=== PATIENT | female | born 1950 | race Caucasian/White ===

== ENCOUNTER 2022-11-06 11:07 | Inpatient (IN) | payer MEDICARE, OTHER ==
[~2022-11-06] VITALS: Ht 160 cm; Wt 66.2 kg
--- NOTE | 2022-11-06 11:13 | NUR ---
No female bed available at this time. ER dry charge process attendant Jesse notified.
--- NOTE | 2022-11-06 11:16 | NUR ---
DR Alves medically cleared pt for admit to MHU.
--- NOTE | 2022-11-06 11:26 | NUR ---
Patient is medically cleared by Dr Alves. MHU nurse Nani will call ER for SBAR as soon as possible per MHU rn relief chargeBROOKE Bartholomew. Patient is resting comfortably on gurney, calm and cooperative at this time.
--- NOTE | 2022-11-06 12:10 | NUR ---
Patient was reminded not to pick and blow her nose. Intermittent visit by our it security project manager was implemented.
--- NOTE | 2022-11-06 12:40 | NUR ---
Patient is eating lunch tray with good appetite, still waiting for an accepting MHU staff@this time.
--- NOTE | 2022-11-06 13:56 | NUR ---
Nurse Nani accepted nursing SBAR. Patient will leave ER as soon as possible.
[2022-11-06 14:10] VITALS: BP 136/75
--- NOTE | 2022-11-06 14:10 | NUR ---
Gps/Astrobiologist- Received report from BROOKE Andrews (ER)
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
[2022-11-06] MEDS ORDERED: MAG HYDROX/AL HYDROX/SIMETH 30 ML LIQUID UDC PO PRN (14:30)
[2022-11-06] MEDS ORDERED: ACETAMINOPHEN 325 MG TABLET PO PRN (14:30)
[2022-11-06] MEDS ORDERED: LORAZEPAM 0.5 MG TABLET PO PRN (14:30)
[2022-11-06] MEDS ORDERED: BLOOD SUGAR DIAGNOSTIC 1 EACH STRIP VI ONE (15:00)
[2022-11-06 16:00] VITALS: BP 124/76
[2022-11-06] MEDS: DIVALPROEX 250 MG TABLET.DR PO SCH ×2 (17:50→21:55)
--- NOTE | 2022-11-06 18:00 | NUR ---
Gps/Cream Cheese Maker- Patient found laughing by her herself in the bathroom, encouraged to finish her dinner. patient refused EKG, will attempt at a later time per R.T.
[2022-11-06 20:08] VITALS: BP 113/68
[2022-11-06] MEDS ORDERED: OLANZAPINE 5 MG TABLET PO SCH (21:00)
--- NOTE | 2022-11-06 22:29 | NUR ---
GPS: Pt.was asked regarding her flu and pna vaccination status earlier. Pt.is hesitant to get these vaccines at the moment. Risks and benefits were explained to her by staff and verbalized understanding.
--- NOTE | 2022-11-07 05:54 | NUR ---
GPS: Pt.slept 6 hrs. last night. Pt.was anxious,disorganized,confused at times but re-directable. Re-assured prn. Denies AH/VH. Safe environment provided. Needs attended. Will continue to monitor.
[2022-11-07 07:30] VITALS: BP 111/70
[2022-11-07 07:45] LABS: HEMATOCRIT 43.9 % (31.2-41.9); MEAN CORPUSCULAR HEMOGLOBIN 31.9 uug (24.7-32.8); MEAN CORPUSCULAR VOLUME 93.4 fL (75.5-95.3); PLATELET COUNT (AUTO) 219 K/uL (179-408)
[2022-11-07 08:05] LABS: CREATININE 0.7 mg/dL (0.6-1.3); POTASSIUM 3.9 mmol/L (3.5-5.1)
[2022-11-07] MEDS: DIVALPROEX 250 MG TABLET.DR PO SCH ×3 (08:50→17:27)
--- NOTE | 2022-11-07 14:00 | NUR ---
Gps/Reverse Engineer- Patient interacting with her roommate. Attended her group therapy, affect pleasant , speech clear, incoherent speech noted at times, laughing incoherently, redirectable, compliant with routine meds.
--- NOTE | 2022-11-07 14:51 | NUR ---
GAYLE Initial Discharge Note: Pt states she lives in a [facility] located at [address] [place] [address]. Per face sheet, pt's address is [address] [place] [address] ([phone]). GAYLE contacted pt's sister, Maribel ([phone]) and left a voicemail regarding pt's discharge plan. GAYLE will continue to work with pt, family and MD to ensure a safe and proper discharge plan.
--- NOTE | 2022-11-07 14:54 | NUR ---
Firearms Report: Manager Loan completed and submitted a DOJ firearms report for 5150 a danger to self certifications. A copy of report has been placed in patient chart.
[2022-11-07 16:00] VITALS: BP 128/67
[2022-11-07 20:03] VITALS: BP 133/76
[2022-11-07] MEDS: OLANZAPINE 5 MG TABLET PO SCH (21:09)
--- NOTE | 2022-11-08 06:25 | NUR ---
GPS: Remains asleep at this time during rounds. Breathing easy and unlabored. Re-assured and re-directed. Remains disorganized,circumstantial, and has tangential thoughts. Needs attended. Med.compliant. Will continue to monitor.
[2022-11-08 07:53] VITALS: BP 91/44
[2022-11-08] MEDS: DIVALPROEX 250 MG TABLET.DR PO SCH ×3 (08:24→16:22)
--- NOTE | 2022-11-08 13:42 | NUR ---
GPS: Nursing Notes: Destructive Behavior To Self: Patient is awake and responding to her name, impaired judgment, hyperverbal, poor impulse control, redirected during shift, gets easily irritable when redirected, unable to formulate a viable plan for self care, denies SI, episodes of mumbling to unseen others, internally preoccupied, stated "that she is many missions...", unable to formulate a viable plan for self care, denies SI/HI, continue to monitor for safety, continue with treatment plan.
[2022-11-08 16:05] VITALS: BP 144/71
[2022-11-08 20:00] VITALS: BP 118/62
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
[2022-11-08] MEDS: OLANZAPINE 5 MG TABLET PO SCH (20:37)
[2022-11-09 08:09] VITALS: BP 96/68
[2022-11-09] MEDS: DIVALPROEX 250 MG TABLET.DR PO SCH ×3 (08:32→16:09)
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
[2022-11-09 16:08] VITALS: BP 125/76
[2022-11-09 19:58] VITALS: BP 109/75
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
[2022-11-09] MEDS: OLANZAPINE 5 MG TABLET PO SCH (20:31)
[2022-11-10 07:43] VITALS: BP 112/58
[2022-11-10] MEDS: DIVALPROEX 250 MG TABLET.DR PO SCH ×3 (08:08→16:32)
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
--- NOTE | 2022-11-10 15:03 | NUR ---
14 days PC hearing done ,held for Gravely disabled.
--- NOTE | 2022-11-10 15:19 | NUR ---
GPS: Nursing Notes: Destructive Behavior To Self: Patient is awake and responding to her name, impaired judgment, poor insight, disoriented, gets easily anxious when redirected, disorganized thought process, believes that she is leaving today, wandering around the unit, resistant with nursing care, unable to formulate a viable plan for self care, continue to monitor for safety, continue with treatment plan.
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
[2022-11-10 16:35] VITALS: BP 111/58
[2022-11-10 19:43] VITALS: BP 112/56
[2022-11-10] MEDS: OLANZAPINE 5 MG TABLET PO SCH (20:19)
[2022-11-10] MEDS: TEMAZEPAM 7.5 MG CAPSULE PO PRN (22:16)
[2022-11-11 07:48] LABS: HEMATOCRIT 43.6 % (31.2-41.9); MEAN CORPUSCULAR HEMOGLOBIN 31.9 uug (24.7-32.8); MEAN CORPUSCULAR VOLUME 95.2 fL (75.5-95.3); PLATELET COUNT (AUTO) 207 K/uL (179-408)
[2022-11-11 08:01] VITALS: BP 95/53
[2022-11-11 08:05] LABS: BILIRUBIN,TOTAL 0.3 mg/dL (0.2-1.0); CREATININE 0.7 mg/dL (0.6-1.3); POTASSIUM 4.5 mmol/L (3.5-5.1)
[2022-11-11 08:11] LABS: NEUTROPHILS % (MANUAL) 0 % (42-75)
[2022-11-11] MEDS: DIVALPROEX 250 MG TABLET.DR PO SCH ×3 (08:31→17:07)
[2022-11-11 15:56] VITALS: BP 96/54
[2022-11-11 18:00] LABS: *BILIRUBIN,URIN NEGATIVE (NEGATIVE); *BLOOD, URINE 1+ (NEGATIVE); *CLARITY,URINE SLIGHTLY CLOUDY (CLEAR); *COLOR,URINE YELLOW (YELLOW); *KETONES,URINE TRACE (NEGATIVE); *UROBILINOGEN,URINE 0.2 E.U./dl (NORMAL); LEUKOCYTE ESTERASE ,URINE 1+ (NEGATIVE); NITRITE, URINE NEGATIVE (NEGATIVE); PH,URINE 7.5 (5.0-8.0); UGLUCOSE NEGATIVE (NEGATIVE)
--- NOTE | 2022-11-11 18:39 | NUR ---
GPS: Nursing Notes: Destructive Behavior To Self: Patient is awake and responding to her name, impaired judgment, resistant with nursing care, forgetful at times, episodes of talking incoherently, disorganized thought process, gets easily irritable when redirected, stated "I am not disabled anybody....Yes, I want my card....", needs prompting to participate in therapeutic groups, denies SI, unable to formulate a viable plan for self care, continue to monitor for safety, continue with treatment plan.
[2022-11-11 19:53] VITALS: BP 103/60
[2022-11-11] MEDS: OLANZAPINE 5 MG TABLET PO SCH (20:27)
--- NOTE | 2022-11-12 05:28 | NUR ---
Received patient at the start of the shift. Hyperverbal, paranoid and delusional. Difficult to redirect and hesitant to take her medications. Safety Stratiges are in place. Continuing to monitor for compliance and to encourage reality based thinking and meaningful conversation. Patient is anxious about her discharge plan. She denies having SI.
[2022-11-12 07:37] VITALS: BP 97/55
[2022-11-12] MEDS: DIVALPROEX 250 MG TABLET.DR PO SCH (08:48)
[2022-11-12] MEDS: OLANZAPINE 5 MG TABLET PO SCH ×2 (12:44→20:25)
[2022-11-12 15:03] VITALS: BP 113/59
[2022-11-12 20:33] VITALS: BP 95/58
--- NOTE | 2022-11-12 21:03 | NUR ---
GPS: Pt.is anxious slightly but re-directable. Insight and judgment remains impaired. Took bedtime meds.with little persuasion from staff. Safe environment provided. Will continue to monitor.
[2022-11-13 07:30] VITALS: BP 97/54
[2022-11-13] MEDS: OLANZAPINE 5 MG TABLET PO SCH ×2 (08:53→20:20)
--- NOTE | 2022-11-13 10:40 | NUR ---
Gps/Lisa Steinberg UNION STEWARD was in to see patient, i informed of UA results , order received Patient was well informed. Adequate fluid intake encouraged. Compliance noted.
[2022-11-13] MEDS: CEphaleXIN 500 MG CAPSULE PO SCH ×3 (12:08→22:07)
[2022-11-13 16:00] VITALS: BP 133/61
--- NOTE | 2022-11-13 16:08 | NUR ---
GAYLE Family Contact: GAYLE spoke with pt's sister, Shante ([phone]) [facility]. Shante is aware pt will follow with a psychiatrist and frontload driver. GAYLE will continue to inform Shante of pt's discharge details. Pt does not have a DPOA or conservator.
[2022-11-13] MEDS: risperiDONE 1 MG TABLET PO SCH (16:31)
[2022-11-13 20:15] VITALS: BP 96/48
[2022-11-14] MEDS: CEphaleXIN 500 MG CAPSULE PO SCH ×3 (06:22→21:26)
[2022-11-14 07:30] VITALS: BP 97/57
[2022-11-14] MEDS: risperiDONE 1 MG TABLET PO SCH ×2 (08:36→16:06)
--- NOTE | 2022-11-14 11:16 | NUR ---
Nursing- Attended part of her group activity had been compliant with her routine medications . Paranoia noted, tends to write down medications she had been given, forgets
--- NOTE | 2022-11-14 11:21 | NUR ---
SW Family Contact: SW spoke with pt's sister, Shante ([phone]) and left a voicemail for a call back regarding pt's referral to previously discussed facility called [facility] for discharge next week.
[2022-11-14 16:00] VITALS: BP 117/67
[2022-11-14] MEDS: risperiDONE 2 MG TABLET PO SCH (20:12)
[2022-11-14] MEDS: BENZTROPINE MESYLATE 0.5 MG TABLET PO SCH (20:16)
[2022-11-14 20:27] VITALS: BP 117/78
--- NOTE | 2022-11-15 00:27 | NUR ---
At 1730 report received from ongoing nurse, patient is AAOX2 with confusion. Patient was seen by the nursing station standing and looking for a few minutes; then went to her room. She is compliant with her meds. No aggressive behavior was observed, she was easy to redirect. Patient remained calm in her room.Will continue to monitor patient for Safety.
[2022-11-15] MEDS ORDERED: CEphaleXIN 500 MG CAPSULE ONE (06:52)
[2022-11-15] MEDS: CEphaleXIN 500 MG CAPSULE PO SCH (06:56)
[2022-11-15 08:00] VITALS: BP 102/54
[2022-11-15] MEDS: risperiDONE 1 MG TABLET PO SCH ×2 (08:41→16:13)
[2022-11-15] MEDS: BENZTROPINE MESYLATE 0.5 MG TABLET PO SCH ×2 (08:42→20:24)
--- NOTE | 2022-11-15 14:23 | NUR ---
Gps/Budget Engineer- Noter interacting to some of her peers during group activity. Preferred to stay in her room in bed during the afternoon. Complaint with routine meds.Patient verbalized she has concerned about her [employer] van in [facility]
[2022-11-15 16:04] VITALS: BP 94/57
[2022-11-15 19:55] VITALS: BP 90/52
[2022-11-15] MEDS: risperiDONE 2 MG TABLET PO SCH (20:23)
[2022-11-15] MEDS: TEMAZEPAM 7.5 MG CAPSULE PO PRN (22:52)
--- NOTE | 2022-11-16 04:19 | NUR ---
Received patient in her room. Hyperverbal with this proposal writer. Multiple worries and anxious about being able to return to her van to live her medications and so on.. She denies SI. The patient is disorganized and tangental. Poor insight to her mental issues. At on point, she sat down on the floor in the conklin, after that begun to pace up and down. Patient was requesting that we allow pictures of her Van to be sent to her cell phone. This patient has been needy and attention seeking. Safety Stratiges are in place. Continuing to encourage and educate the patient on effective and simple coping techniques.
[2022-11-16 08:05] LABS: HEMATOCRIT 46.5 % (31.2-41.9); MEAN CORPUSCULAR HEMOGLOBIN 31.6 uug (24.7-32.8); MEAN CORPUSCULAR VOLUME 94.8 fL (75.5-95.3); PLATELET COUNT (AUTO) 224 K/uL (179-408)
[2022-11-16 08:06] LABS: CREATININE 0.7 mg/dL (0.6-1.3); MAGNESIUM 2.3 mg/dL (1.8-2.4); PHOSPHOROUS 3.8 mg/dL (2.5-4.9); POTASSIUM 4.2 mmol/L (3.5-5.1)
[2022-11-16] MEDS: BENZTROPINE MESYLATE 0.5 MG TABLET PO SCH ×2 (08:10→20:24)
[2022-11-16] MEDS: risperiDONE 1 MG TABLET PO SCH ×2 (08:10→16:30)
[2022-11-16 08:23] VITALS: BP 102/56
[2022-11-16 12:30] LABS: BAND % (MANUAL) 3 % (0-10); EOSINOPHILS % (MANUAL) 1 % (0-8); LYMPHOCYTES % (MANUAL) 22 % (20-40); MONOCYTES % (MANUAL) 13 % (2-10); NEUTROPHILS % (MANUAL) 61 % (42-75)
[2022-11-16 15:15] VITALS: BP 105/57
--- NOTE | 2022-11-16 15:51 | NUR ---
Nursing- Had been interacting with her selected peers, in and out of her group activity.Showered self ind. after set up..Used phone couple of times was able to talked to se sister. Attended jaskaran obrien group therapy.Making her needs known ,
[2022-11-16 19:57] VITALS: BP 105/58
[2022-11-16] MEDS: risperiDONE 2 MG TABLET PO SCH (20:26)
[2022-11-16] MEDS: TEMAZEPAM 7.5 MG CAPSULE PO PRN (21:11)
[2022-11-17 07:37] VITALS: BP 110/51
[2022-11-17] MEDS: risperiDONE 1 MG TABLET PO SCH ×3 (08:26→16:31)
[2022-11-17] MEDS: BENZTROPINE MESYLATE 0.5 MG TABLET PO SCH ×2 (08:26→20:45)
--- NOTE | 2022-11-17 12:38 | NUR ---
SW Family Contact: SW spoke with pt's sister, Shante ([phone]) regarding [facility] Thursday for continuation of care. Shante is agreeable and thankful to this SW and the psychiatrist for helping pt with a continuation of care plan. Shante was especially grateful that pt will receive care at [facility] until she is cleared and ready to be on her own by the physician's at [facility].
--- NOTE | 2022-11-17 15:48 | NUR ---
GPS: Nursing Notes: Destructive Behavior To Self: Patient is awake and responding to her name, episodes of tangential speech, evasive when questioned by staff, gets easily anxious when redirected, needs prompting to shower, participating in therapeutic groups, unable to formulate a viable plan for self care, believes that she is going back to her Van, continue to monitor for safety, denies SI, continue with treatment plan.
[2022-11-17 16:00] VITALS: BP 126/68
[2022-11-17 20:09] VITALS: BP 100/50
[2022-11-17] MEDS: risperiDONE 2 MG TABLET PO SCH (20:45)
[2022-11-17] MEDS: TEMAZEPAM 7.5 MG CAPSULE PO PRN (23:21)
[2022-11-18 08:00] VITALS: BP 90/50
[2022-11-18] MEDS: risperiDONE 1 MG TABLET PO SCH ×3 (08:33→16:25)
[2022-11-18] MEDS: BENZTROPINE MESYLATE 0.5 MG TABLET PO SCH ×2 (08:33→20:50)
--- NOTE | 2022-11-18 13:13 | NUR ---
GPS: Nursing Notes: Destructive Behavior To Self: Patient is awake and responding to her name, impaired judgment, episodes of tangential speech, gets easily anxious when redirected, unable to formulate a viable plan for self care, believes that she is going back to her van, denies SI, participating in therapeutic groups, continue to monitor for safety, continue with treatment plan.
[2022-11-18 15:06] VITALS: BP 93/58
[2022-11-18 20:00] VITALS: BP 111/54
[2022-11-18] MEDS: risperiDONE 2 MG TABLET PO SCH (20:50)
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
[2022-11-18 21:31] VITALS: BP 111/54
[2022-11-19] MEDS: TEMAZEPAM 7.5 MG CAPSULE PO PRN (01:36)
[2022-11-19 07:53] VITALS: BP 95/48
[2022-11-19] MEDS: BENZTROPINE MESYLATE 0.5 MG TABLET PO SCH ×2 (08:41→20:34)
--- NOTE | 2022-11-19 10:13 | NUR ---
GAYLE Family Contact: SW contacted pt's sister, Shante ([phone]) and left a voicemail stating pt's discharge to [facility] located at [address] [place] [address] ([phone]) is cancelled per Dr. Cardona due to pt appearing anxious, agitated and yelling.
[2022-11-19] MEDS: risperiDONE 1 MG TABLET PO SCH ×4 (10:54→20:34)
--- NOTE | 2022-11-19 15:00 | NUR ---
Received pt in [place] awake anxious, confuse at times , guarded and easily irritable when redirected. Pt is A/o X2, ambulatory self care.Pt is compliant with medications and nursing care.Pt denies SI at this time. Continue to monitor for safety , Continue with treatment plan.
[2022-11-19 16:00] VITALS: BP 105/52
--- NOTE | 2022-11-19 16:03 | NUR ---
GAYLE Family Contact/Discharge Update: GAYLE spoke with pt's sister, Shante ([phone]) regarding pt's cancelled discharge as Shante had not yet received GAYLE's voicemail. Shante is aware and agreeable that this SW will inform Shante with pt's new discharge date once pt is stable for discharge. GAYLE will contact Sol ([phone]) from the facility to schedule transportation by [facility] when a discharge date is confirmed.
--- NOTE | 2022-11-19 20:30 | NUR ---
Received patient in her room in bed. she is awake A/O x 2 she is calm and pleasant upon approached. she is isolative and withdrawn but she is able to verbalized her feelings. she stated that she does not want to go to [place] but she could go to [place] as she knows that place and is easy for her to move around. She denied SI/HI/VH/AH. Patient is reassured for her safety. She continue compliant with her medication regiment diet and plan of care. her V/S are stable. She was given PO fluids and snacks. all her needs are met. she is reassured for her safety. safety and fall precautions are in place. will continue to monitor.
[2022-11-19 20:42] VITALS: BP 114/61
--- NOTE | 2022-11-20 06:36 | NUR ---
GPS: Pt.slept 7 hrs.last night. Less anxious now but remains withdrawn. Re-directed and re-assured prn. Safe environment provided. Will continue to monitor.
[2022-11-20 07:30] VITALS: BP 112/45
[2022-11-20] MEDS: BENZTROPINE MESYLATE 0.5 MG TABLET PO SCH ×2 (08:27→20:09)
[2022-11-20] MEDS: risperiDONE 1 MG TABLET PO SCH ×4 (08:27→20:09)
[2022-11-20 16:00] VITALS: BP 109/49
--- NOTE | 2022-11-20 16:29 | NUR ---
Received pt in [place] awake less anxious, confuse at times , guarded and easily irritable when redirected. Pt is A/o X2, ambulatory self care.Pt is compliant with medications and nursing care. Pt comes out of the room more and interacts with peers more.Pt denies SI at this time. Continue to monitor for safety , Continue with treatment plan.
[2022-11-20 20:44] VITALS: BP 118/55
[2022-11-21 07:30] VITALS: BP 94/61
[2022-11-21] MEDS: risperiDONE 1 MG TABLET PO SCH ×4 (08:55→20:06)
[2022-11-21] MEDS: BENZTROPINE MESYLATE 0.5 MG TABLET PO SCH ×2 (08:55→20:05)
[2022-11-21 16:00] VITALS: BP 116/61
--- NOTE | 2022-11-21 18:35 | NUR ---
Pt is awake most of the time, forgetful, but able to state her needs. pt is compliant with medications, pt is willing to follow treatment plan. Pt is redirectable at this time.
[2022-11-21 20:01] VITALS: BP 111/61
--- NOTE | 2022-11-21 20:40 | NUR ---
GPS: Remains anxious,worried and disorganized. Re-assured and re-directed. Med.compliant. Safe environment provided. Denies SI. Needs attended.
[2022-11-22 07:36] VITALS: BP 101/46
[2022-11-22] MEDS: risperiDONE 1 MG TABLET PO SCH ×4 (08:34→20:54)
[2022-11-22] MEDS: BENZTROPINE MESYLATE 0.5 MG TABLET PO SCH ×2 (08:34→20:53)
--- NOTE | 2022-11-22 12:24 | NUR ---
GPS: Nursing Notes: Destructive Behavior To Self: Patient is awake and responding to her name, episodes of tangential speech, redirected and reoriented during shift, anxious affect, impaired judgment, gets easily anxious when redirected, poor impulse control at times, unable to formulate a viable plan for self care, needs prompting to participate in therapeutic groups, denies SI, continue to monitor for safety, continue with treatment plan.
[2022-11-22 16:31] VITALS: BP 99/50
[2022-11-22 20:00] VITALS: BP 108/56
--- NOTE | 2022-11-23 04:25 | NUR ---
Patient up during the night asking for a shower. Reluctant to put clean cloths on afterwards. The patient remains delusional, telling this physician underwriter " I am about to start my job at [employer] ". Tangental speech , flight of ideas , but was wiling to make a verbal contract for safety and denied SI. The patient refused sleeping medication and was up most of the night. Safety Stratiges are in place.
[2022-11-23 07:52] VITALS: BP 94/46
[2022-11-23] MEDS: risperiDONE 1 MG TABLET PO SCH ×4 (08:29→20:39)
[2022-11-23] MEDS: BENZTROPINE MESYLATE 0.5 MG TABLET PO SCH ×2 (08:29→20:39)
--- NOTE | 2022-11-23 13:44 | NUR ---
GPS: Nursing Notes: Destructive Behavior To Self: Patient is awake and responding to her name, cooperative with nursing care, compliant with her mediations, episodes of tangential speech, following staff directions, believes that she is leaving tomorrow, unable to formulate a viable plan for self care, needs prompting to participate in therapeutic groups, continue to monitor for safety, continue with treatment plan.
[2022-11-23 16:33] VITALS: BP 124/56
[2022-11-23 19:54] VITALS: BP_SYST 100; BP_SYST 108; BP_DIAS 50
--- NOTE | 2022-11-24 02:45 | NUR ---
Patient stayed in her room most of the night , but has been having a hard time sleeping. A PRN medication was offered and the patient refused. The patient stated " I am nervous about going to [place] tomorrow because their library is too small. " The patient is delusional and speech is tangental . She has difficulty engaging in a meaningful conversation, has poor insight and no plan of self care upon discharge. Reassurance and information were provided about the discharge as requested, per oncology social worker documentation. Safety Stratiges are in place. Patient is sleeping at this time.
[2022-11-24 06:47] LABS: HEMATOCRIT 42.9 % (31.2-41.9); MEAN CORPUSCULAR HEMOGLOBIN 31.3 uug (24.7-32.8); MEAN CORPUSCULAR VOLUME 93.9 fL (75.5-95.3); PLATELET COUNT (AUTO) 239 K/uL (179-408)
[2022-11-24 07:12] LABS: THYROID STIMULATING HORMONE 5.159 mIU/mL (0.358-3.740)
[2022-11-24 07:29] LABS: BILIRUBIN,TOTAL 0.5 mg/dL (0.2-1.0); CREATININE 0.7 mg/dL (0.6-1.3); MAGNESIUM 2.1 mg/dL (1.8-2.4); PHOSPHOROUS 4.2 mg/dL (2.5-4.9); POTASSIUM 3.9 mmol/L (3.5-5.1); TOTAL PROTEIN, SERUM 6.5 g/dL (6.4-8.2)
[2022-11-24 07:43] VITALS: BP 99/58
[2022-11-24] MEDS: risperiDONE 1 MG TABLET PO SCH (08:25)
[2022-11-24] MEDS: BENZTROPINE MESYLATE 0.5 MG TABLET PO SCH (08:25)
--- NOTE | 2022-11-24 09:03 | NUR ---
GAYLE Family Contact: SW contacted pts sister, Shante ([phone]) and confirmed for pt's discharge today to [facility] located at [address] [place] [address] via FACILITY TRANSPORTATION by non-emergency medical transport at 11AM. Shante is aware and agreeable with the discharge plan.
--- NOTE | 2022-11-24 09:09 | NUR ---
GAYLE Discharge Screener: GAYLE completed a discharge screener with the pt.
--- NOTE | 2022-11-24 09:41 | NUR ---
GAYLE Discharge Note: Pt will be discharged to [facility]pc facility located at [address] [place] [phone]) [phone] via FACILITY TRANSPORTATION by non-emergency medical transport at 11AM. GAYLE spoke with Sol silvestre at the facility who states they are ready to accept the patient today. Pt is aware and agreeable with discharge plan. Pts sister, Shante ([phone]) is aware and agreeable with the discharge plan. Pt is alert and oriented x3, is unable to plan for self-care at this time. However, pt is willing to accept care at SNF. Pt denies any suicidal or homicidal ideation. Pt will follow-up at the facility with Psychiatrist, Dr. Meadows and Spray Rig Operator, Dr. Samuel. Pt presents with calm mood and congruent affect. PHARMACY: [facility] [address] [facility] .
--- NOTE | 2022-11-24 12:21 | NUR ---
GPS: Nursing Notes: Discharge Notes: Patient is awake and responding to her name, cooperative with nursing care, compliant with her medications, following staff directions, denies SI/HI, denies AH/VH, denies discomfort or pain, denies SOB. Patient is discharge to [facility]. SNF at [address] [place] [phone] . Report given to facility's admitting nurse - Michelle, RN supervisor finishing, belongings and valuables are given to patient. Patient's sister - Shante was inform of discharge by social studies department chair. Patient will follow up with Dr. Meadows (psychiatrist) and Dr. Samuel (ethologist) at the facility for aftercare. Facility's transportation picked her up.
== END 2022-11-24 11:30 | DRG 885 ==
LOC: ER 11:07 → GPS 13:52
PROVIDERS: ADMIT Psychiatry & Neurology Psychosomatic Medicine; ATTEND Nurse Practitioner Family
DX: F20.9 Schizophrenia, unspecified (principal); E86.0 Dehydration; Z20.822 Contact with and (suspected) exposure to COVID-19; F29 Unspecified psychosis not due to a substance or known physiological condition; F41.9 Anxiety disorder, unspecified; R41.9 Unspecified symptoms and signs involving cognitive functions and awareness
CPT/HCPCS: 36415; 70030-TC; 70450; 80164; 83735; 84100; 84443; 85025; A4663; J3490